=== PATIENT | female | born 1985 | race Caucasian/White ===

== ENCOUNTER 2017-10-26 07:59 | Emergency (ER) | payer BC ==
[~2017-10-26] VITALS: Ht 165.1 cm; Wt 59.0 kg
[2017-10-26] MEDS ORDERED: LEVOTHYROXINE125 MCG PO (08:10)
--- NOTE | 2017-10-27 11:28 | EKG ---
[facility] [address] [facility] [place] [address] Signed Sinus tachycardia Nonspecific ST abnormality Abnormal ECG No previous ECGs available Confirmed by GEORGIE HOYOS MD ([id number] on 10/27/2017 11:28:35 AM Electronically Signed By: GEORGIE HOYOS MD 10/27/17 1128 PATIENT NAME: ARA HENRIQUEZ Electrocardiogram DATE OF : 83 PHYSICIAN: GEORGIE HOYOS MD REPORT #: [id number] REPORT IS CONFIDENTIAL AND NOT TO BE RELEASED WITHOUT AUTHORIZATION
== END 2017-10-26 09:20 | disposition home or self-care (01) ==
LOC: ED 07:59
DX: R06.82 Tachypnea, not elsewhere classified (principal); R06.89 Other abnormalities of breathing; E03.9 Hypothyroidism, unspecified; F17.200 Nicotine dependence, unspecified, uncomplicated; Z79.899 Other long term (current) drug therapy
CPT/HCPCS: 80053; 84439; 84443; 84484; 85025; 93005; 93010; 96374; 99283; J2060

== ENCOUNTER 2023-04-03 12:48 | Emergency (ER) | payer OTHER ==
[~2023-04-03] VITALS: Ht 165.1 cm; Wt 59.1 kg
[~2023-04-03 12:48] MED LIST: LEVOTHYROXINE125 MCG PO
[2023-04-03] MEDS ORDERED: TIZANIDINE HCL2 MG PO (13:02)
[2023-04-03 13:40] LABS: BASOPHILS 0.7 % (0-2); EOSINOPHILS 1.8 % (0-6); HEMATOCRIT 40.7 % (35.0-50.0); HEMOGLOBIN 13.7 g/dL (12.0-18.0); LYMPHOCYTES 16.3 % (24-44); MCH 32.8 (27-36); MCHC 33.7 g/dl (30-36); MCV 97.4 fl (81-99); NEUTROPHILS 72.2 % (39-80); PLATELET COUNT 216 K/uL (140-440); RBC 4.18 M/ul (4.3-5.7); RDW 12.2 (10.5-15.0)
[2023-04-03 13:48] LABS: ANION GAP 9.6 (7-21); BUN/CREATININE RATIO 11.84 (6.0-28.6); CALCIUM 8.7 mg/dL (8.5-10.1); CREATININE, SERUM 0.76 mg/dL (0.55-1.02); POTASSIUM 3.6 mmol/L (3.5-5.1)
[2023-04-03] MEDS ORDERED: NAPROSYN500 MG PO (15:04)
[2023-04-03] MEDS ORDERED: ATIVAN1 MG PO (15:04)
[2023-04-03] MEDS ORDERED: LIDODERM1 EACH TOP (15:04)
[2023-04-03 15:23] VITALS: BP 122/92
== END 2023-04-03 15:24 | disposition home or self-care (01) ==
LOC: ED 12:48
PROVIDERS: Emergency Medicine
DX: M43.6 Torticollis (principal); E03.9 Hypothyroidism, unspecified; F17.200 Nicotine dependence, unspecified, uncomplicated; Z79.890 Hormone replacement therapy
CPT/HCPCS: 36415; 70491; 70498; 80048; 84703; 85025; J1885; J2060; Q9967